=== PATIENT | male | born 1975 | race Two or more races ===

== ENCOUNTER → 2024-09-27 | Emergency (ER) | payer OTHER ==
[~2024-09-27] VITALS: Ht 177.8 cm; Wt 99.8 kg
[~2024-09-27] MED LIST: ATORVASTATIN CA10 MG PO; CEFTRIAXONE SODIUM 1,000 MG VIAL IM STA; CEFTRIAXONE SODIUM 1,000 MG VIAL ONE; KETOROLAC TROMETHAMINE 30 MG VIAL ONE; LIDOCAINE HCL 1% 10ML VIAL ONE; POVIDONE-IODINE 118 ML BOTT TOP ONE; TRAMADOL HCL 50 MG TABLET PO STA; ZESTRIL20 MG PO
== END | disposition home or self-care (01) ==
LOC: ER 20:03
DX: K05.10 Chronic gingivitis, plaque induced (principal); K08.89 Other specified disorders of teeth and supporting structures